=== PATIENT | male | born 1945 | race Caucasian/White ===

== ENCOUNTER → 2017-06-28 | Outpatient (CLI) | payer MEDICARE, OTHER ==
--- NOTE | 2017-06-28 08:45 | RAD ---
Chest, 2 views, 06/28/2017: History: Chest congestion, cough Comparison is made to a study from 06/13/2013. The heart size and pulmonary vascularity are normal. There is minimal pleural scarring over the pulmonary apices. No pulmonary infiltrates are evident. No pleural fluid is seen. IMPRESSION: No acute cardiopulmonary abnormality is detected.
== END | disposition home or self-care (01) ==
LOC: DXRAD 08:01
PROVIDERS: ATTEND Physician Assistant Medical
DX: R09.89 Other specified symptoms and signs involving the circulatory and respiratory systems (principal); J98.4 Other disorders of lung
CPT/HCPCS: 71020

== ENCOUNTER → 2018-01-25 | Outpatient (CLI) | payer MEDICARE, OTHER ==
--- NOTE | 2018-01-25 12:20 | RAD ---
RS Compliance Statement: One or more of the following individualized dose reduction techniques were utilized for this examination: 1. Automated exposure control 2. Adjustment of the mA and/or kV according to patient size 3. Use of iterative reconstruction technique CT head without contrast 01/25/2018 12:08 PM INDICATION: Confusion, falling asleep abdomen or COMPARISON: None available TECHNIQUE: Multiple axial CT images of the head were obtained from skull base through the vertex without intravenous contrast. FINDINGS: Head: Ventricles, sulci and basal cisterns are mildly prominent compatible with age-related degenerative changes. There is no hydrocephalus. Workman-white matter differentiation is normal. There is no acute intracranial hemorrhage. There is no mass, mass effect or midline shift. Posterior fossa is normal in appearance. Visualized portions of the orbits are normal. Paranasal sinuses are well aerated. Mastoid air cells are well aerated. Scalp and calvaria are normal. IMPRESSION: No acute intracranial hemorrhage. Electronically signed by: Neha Weaver MD (01/25/2018 12:18 PM) [id number]
== END | disposition home or self-care (01) ==
LOC: PMG 11:55
PROVIDERS: ATTEND Family Medicine
DX: R41.0 Disorientation, unspecified (principal); R29.6 Repeated falls
CPT/HCPCS: 70450

== ENCOUNTER → 2019-10-05 | Outpatient (CLI) | payer MEDICARE ==
[~2019-10-05] MED LIST: CONTRAST GIVEN MC PRN; IOHEXOL 240 MG/ML 50ML VIAL. ONE; IOHEXOL 300 MG/ML 75 ML VIAL. IV ONE
--- NOTE | 2019-10-05 09:36 | RAD ---
CT ABDOMEN W/CONTRAST Indication: Chronic epigastric abdominal pain, vomiting, stomach ache Technique: Postcontrast CT imaging was performed of the abdomen, multiplanar reconstruction images submitted. Oral contrast was also given. Pelvis was not imaged. One or more of the following individualized dose reduction techniques were utilized for this examination: 1. Automated exposure control 2. Adjustment of the mA and/or kV according to patient size 3. Use of iterative reconstruction technique. Comparison: Limited images of the abdomen from chest CT October 11, 2016, no previous abdomen CT available Findings: There is no significant abnormality of the limited visualized lung bases. There are hepatic and splenic granulomas. There is probable hepatic steatosis. Gallbladder is present without obvious intraluminal abnormality by CT. No focal abnormality is identified of the pancreas. There is no adrenal nodularity. Both kidneys enhance, no hydronephrosis. There is a small hypodense lesion of the superior right kidney about 0.7 cm, density measurements more cyst-like on coronal images about 19 Hounsfield units. Visualized bowel is not dilated. There is no significant inflammatory type change about the visualized bowel, some retained stool in the transverse colon. There is likely sigmoid diverticulosis, not fully evaluated. Normal caliber appendix is visualized without adjacent inflammatory change. There is multilevel advanced degenerative disc disease L3-4 to L5-S1. There is multilevel lumbar facet degenerative change. There is mild wall prominence of the visualized distal esophagus. IMPRESSION: 1. There is no significant inflammatory type change. There is evidence of old granulomatous disease. 2. There is multilevel advanced degenerative disc disease and lumbar spine L3-4 to L5-S1. 3. There is mild wall prominence of the visualized distal esophagus, nonspecific findings possibly related to esophagitis in the appropriate clinical setting. 4. There is probable hepatic steatosis. Electronically signed by: Ernesto Hernandez MD (10/05/2019 9:33 AM) [id number]
== END ==
LOC: CT 07:45
PROVIDERS: ATTEND Family Medicine
DX: M51.37 Other intervertebral disc degeneration, lumbosacral region (principal)
CPT/HCPCS: 74160; Q9967